=== PATIENT | male | born 1975 | race Caucasian/White ===

== ENCOUNTER 2023-02-17 23:36 | Emergency (ER) | payer OTHER ==
[2023-02-17 23:44] VITALS: BP 144/91
--- NOTE | 2023-02-18 00:43 | ED Physician Documentation ---
History of Present Illness - Stated complaint Stated Complaint: DOG BITE - Chief complaint Chief Complaint: Laceration - History obtained from History obtained from: Patient - Additonal information Additional information: 48-year-old man presents the ED after being bitten by his dogs who are vaccinated against rabies. He himself is up-to-date on tetanus. He has right bicep bite delgado that are hemostatic. Review of Systems Skin: reports: Bite / sting PD PAST MEDICAL HISTORY - Present Medications Home Medications: Ambulatory Orders Medication Instructions Recorded Confirmed Amox/Clav 875/125 [Augmentin 1 tablet PO Q12H 7 Days #14 tablet 02/18/23 875/125 Tab] Celecoxib [Celebrex] 200 mg PO DAILY 02/18/23 02/18/23 Montelukast [Singulair] 10 mg PO DAILY 02/18/23 02/18/23 Sertraline HCl 100 mg PO DAILY 02/18/23 02/18/23 - Allergies Allergies/Adverse Reactions: Allergies Allergy/AdvReac Type Severity Reaction Status Date / Time No Known Drug Allergies Allergy Verified 02/17/23 23:43 PD ED PE NORMAL - Vitals Vital signs reviewed: Yes - General General: Alert and oriented X 3, No acute distress, Well developed/nourished - HEENT HEENT: Atraumatic, PERRL, EOMI - Derm Derm: Normal color, Warm and dry, Other (Bite delgado evident to right bicep including puncture wounds.) Results - Vitals Vitals: Vital Signs - 24 hr 02/17/23 23:40 Temperature 36.6 C Heart Rate 72 Respiratory 16 Rate Blood Pressure 144/91 H O2 Saturation 97 Oxygen O2 Source Room air PD Medical Decision Making - ED course ED course: 48-year-old man presented with dog bite to right bicep. Irrigated with sterile saline. Antibiotic prescription sent to pharmacy. Return precautions given. Plan to follow-up with primary care provider. Departure - Departure Disposition: 01 Home, Self Care Clinical Impression: Dog bite Condition: Stable Instructions: ED Bite Dog Prescriptions: Amox/Clav 875/125 [Augmentin 875/125 Tab] 1 tablet PO Q12H 7 Days #14 tablet Comments: You are seen in the emergency department for dog bite. Please follow-up with your primary care provider. Monitor for signs of infection and take antibiotics as prescribed. We sent antibiotics electronically to [facility] in [place]. Lalitha estevez to the emergency department you have other concerns. Discharge Date/Time: 02/18/23 00:57
== END 2023-02-18 00:57 | disposition home or self-care (01) ==
LOC: ED 23:36
DX: S41.151A Open bite of right upper arm, initial encounter (principal); W54.0XXA Bitten by dog, initial encounter
CPT/HCPCS: 99282; 99283